=== PATIENT | male | born 1980 | race Hispanic/Latino ===

== ENCOUNTER 2018-06-23 04:24 | Emergency (ER) | payer OTHER ==
[2018-06-23 04:39] VITALS: BP 127/82
--- NOTE | 2018-06-23 06:41 | Cat Scan Report ---
FINAL REPORT PROCEDURE: CT LUMBAR SPINE WO CON TECHNIQUE: Computerized axial tomography of the lumbar spine was performed from T12 to the sacrum without contrast material. HISTORY: back pain s/p falling COMPARISON: No prior studies are available for comparison. FINDINGS: L1-2: No significant abnormality. L2-3: No significant abnormality. L3-4: No significant abnormality. L4-5: No significant abnormality. L5-S1: No significant abnormality. Other: There is no compression fracture. There is no malalignment. The sacrum and sacroiliac joints are intact. The paraspinal soft tissues are unremarkable.. IMPRESSION: No significant abnormality
--- NOTE | 2018-06-23 07:29 | Emergency Department Report ---
ED Lower Extremity HPI - General Chief Complaint: Extremity Injury, Lower Stated Complaint: NAIL/RT LEG Time Seen by Provider: 06/23/18 07:24 Source: patient Mode of arrival: Ambulatory Limitations: No Limitations - History of Present Illness MD Complaint: leg injury -: Sudden Injury: Leg: Right Type of Injury: other (abrasion) Place: work Severity: mild Severity scale (0 -10): 1 Improves With: nothing Worsens With: nothing Context: direct blow - Related Data Previous Rx's Medication Instructions Recorded Last Taken Type Cyclobenzaprine HCl [Flexeril 5 MG 5 mg PO TID PRN #12 tab 06/23/18 Unknown Rx TAB] HYDROcodone/APAP 5-325 [[place] 1 each PO Q8H PRN #10 tablet 06/23/18 Unknown Rx 5/325] Mupirocin [Bactroban 2%] 1 applic TP TID #1 tube 06/23/18 Unknown Rx Sulfamethoxazole/Trimethoprim 1 each PO BID #20 tablet 06/23/18 Unknown Rx [Bactrim DS TAB] Allergies Allergy/AdvReac Type Severity Reaction Status Date / Time No Known Allergies Allergy Verified 06/23/18 04:30 ED Review of Systems ROS: Stated complaint: NAIL/RT LEG Other details as noted in HPI Comment: All other systems reviewed and negative Constitutional: denies: chills, fever Eyes: denies: eye pain ENT: denies: ear pain Respiratory: denies: cough, shortness of breath Cardiovascular: denies: chest pain, palpitations Endocrine: no symptoms reported Gastrointestinal: denies: abdominal pain, nausea, vomiting Genitourinary: denies: urgency, dysuria Musculoskeletal: denies: back pain Skin: denies: rash, lesions Neurological: denies: headache, weakness Psychiatric: denies: anxiety, depression Hematological/Lymphatic: denies: easy bleeding, easy bruising ED Past Medical Hx - Past Medical History Previous Medical History?: No - Surgical History Past Surgical History?: No - Social History Smoking Status: Never Smoker Substance Use Type: Alcohol - Medications Home Medications: Home Medications Medication Instructions Recorded Confirmed Last Taken Type Cyclobenzaprine HCl [Flexeril 5 MG 5 mg PO TID PRN #12 tab 06/23/18 Unknown Rx TAB] HYDROcodone/APAP 5-325 [Lupton 1 each PO Q8H PRN #10 tablet 06/23/18 Unknown Rx 5/325] Mupirocin [Bactroban 2%] 1 applic TP TID #1 tube 06/23/18 Unknown Rx Sulfamethoxazole/Trimethoprim 1 each PO BID #20 tablet 06/23/18 Unknown Rx [Bactrim DS TAB] ED Physical Exam - General Limitations: No Limitations General appearance: alert, in no apparent distress - Head Head exam: Present: atraumatic, normocephalic, normal inspection - Eye Eye exam: Present: normal appearance, PERRL, EOMI Pupils: Present: normal accommodation - ENT ENT exam: Present: normal exam, normal orophraynx, mucous membranes moist - Neck Neck exam: Present: normal inspection, full ROM - Respiratory Respiratory exam: Present: normal lung sounds bilaterally. Absent: respiratory distress, wheezes, rales, rhonchi - Cardiovascular Cardiovascular Exam: Present: regular rate, normal rhythm, normal heart sounds - GI/Abdominal GI/Abdominal exam: Present: soft, normal bowel sounds. Absent: distended, tenderness, guarding, rebound - Extremities Exam Extremities exam: Present: other (Right leg abrasion) - Back Exam Back exam: Present: normal inspection, full ROM. Absent: tenderness - Neurological Exam Neurological exam: Present: alert, oriented X3, CN II-XII intact - Psychiatric Psychiatric exam: Present: normal affect, normal mood - Skin Skin exam: Present: warm, dry, abrasion ED Course Vital Signs 06/23/18 04:22 Temperature 98.3 F Pulse Rate 74 Respiratory 20 Rate Blood Pressure 127/82 O2 Sat by Pulse 97 Oximetry ED Lower Extremity MDM - Radiology Data Radiology results: image reviewed - Medical Decision Making Right Leg Abrasion. Chronic Back Pain. Critical care attestation.: If time is entered above; I have spent that time in minutes in the direct care of this critically ill patient, excluding procedure time. ED Disposition Clinical Impression: Abrasion, right lower leg, initial encounter Chronic back pain Qualifiers: Back pain location: low back pain Back pain laterality: unspecified Sciatica presence: without sciatica Qualified Code(s): M54.5 - Low back pain Disposition: DC-01 TO HOME OR SELFCARE Is pt being admited?: No Does the pt Need Aspirin: No Condition: Stable Instructions: Abrasion (ED), Chronic Back Pain (ED) Additional Instructions: Follow up with your regular doctor. Return to the ED if your condition worsens. Prescriptions: Cyclobenzaprine HCl [Flexeril 5 MG TAB] 5 mg PO TID PRN #12 tab PRN Reason: Spasms HYDROcodone/APAP 5-325 [Lupton 5/325] 1 each PO Q8H PRN #10 tablet PRN Reason: Pain , Severe (7-10) Mupirocin [Bactroban 2%] 1 applic TP TID #1 tube Sulfamethoxazole/Trimethoprim [Bactrim DS TAB] 1 each PO BID #20 tablet Referrals: PRIMARY CARE, [Primary Care Provider] - 3-5 Days Forms: Work/School Release Form(ED) Time of Disposition: 08:26
[2018-06-23] MEDS ORDERED: NORCO 7.5/325 PO ONE (07:30)
[2018-06-23] MEDS ORDERED: FLEXERIL PO ONE (07:30)
[2018-06-23] MEDS ORDERED: MOTRIN PO ONE ×2 (08:01→08:18)
--- NOTE | 2018-06-23 08:01 | XRay Report ---
RIGHT TIBIA/FIBULA: History: Injury AP and lateral views of the right tibia/fibula demonstrate normal mineralization and contours for this patient's age. No destructive changes are noted and the adjacent soft tissues are normal. IMPRESSION: Unremarkable right tibia/fibula.
== END 2018-06-23 08:20 | disposition home or self-care (01) ==
LOC: ED 04:24
DX: S80.811A Abrasion, right lower leg, initial encounter (principal); G89.29 Other chronic pain; M54.5 Low back pain; X58.XXXA Exposure to other specified factors, initial encounter; Y93.89 Activity, other specified; Y92.89 Other specified places as the place of occurrence of the external cause; Y99.8 Other external cause status
CPT/HCPCS: 72131; 99284

== ENCOUNTER 2022-07-31 20:45 | Emergency (ER) | payer OTHER ==
[2022-07-31] MEDS ORDERED: TETRACAINE 0.5% OPHTH SOLN 4ML OD ONE (21:31)
[2022-07-31] MEDS ORDERED: FLUORESCEIN 1 MG STRIP OP ONE (21:32)
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
[2022-07-31 22:32] VITALS: BP 127/85
== END 2022-07-31 22:31 | disposition home or self-care (01) ==
LOC: ED 20:45
DX: S05.91XA Unspecified injury of right eye and orbit, initial encounter (principal); Z21 Asymptomatic human immunodeficiency virus [HIV] infection status; Y08.89XA Assault by other specified means, initial encounter; Y93.89 Activity, other specified; Y92.89 Other specified places as the place of occurrence of the external cause; Y99.8 Other external cause status
CPT/HCPCS: 99283